=== PATIENT | male | born 2005 | race Caucasian/White ===

== ENCOUNTER 2024-11-04 20:57 | Emergency (ER) | payer MEDICAID, OTHER ==
[~2024-11-04] VITALS: Ht 170.2 cm; Wt 82.5 kg
--- NOTE | 2024-11-04 21:35 | DVH ---
EXAM: XY CHEST TWO VIEWS ROUTINE CLINICAL HISTORY: sob TECHNIQUE: Frontal and lateral views of the chest WID: COMPARISON: None FINDINGS: Lines and tubes: None Chest: The heart size and pulmonary vasculature is within normal limits. No pleural effusion, pneumothorax, or consolidation. The osseous structures are grossly intact. IMPRESSION: No acute cardiopulmonary abnormality.
[2024-11-04 22:37] VITALS: BP 124/64; PULSE 82; TEMP 98.2
[2024-11-04] MEDS: DexAMETHasone SOD PHOS 10MG/1ML VIAL INJ IM ONE (22:54)
[2024-11-04 23:01] VITALS: RESP 19; O2SAT 99
[2024-11-04] MEDS: ALBUTEROL SULF 2.5 MG/0.5ML(0.5%) NEB SOLN NEB ONE (23:02)
[2024-11-04] MEDS: IPRATROPIUM BROM 0.5 MG/2.5ML INH SOL NEB ONE (23:02)
--- NOTE | 2024-11-04 23:10 | ED.PDOC ---
SOB-HPI HPI Comments THIS IS A 18-YEAR-OLD ASTHMATIC PATIENT PRESENTS TO THE ED WITH COUGH SHORTNESS OF BREATH AND WHEEZING OVER THE PAST 2 DAYS. PATIENT STATES HE HAS BEEN USING HIS ALBUTEROL INHALER WITH LITTLE RELIEF. REPORTS NO FEVERS, CHILLS, DIFFICULTY BREATHING, OR CHEST PAIN Chief Complaint: Cough Time Seen by MD: 21:14 Reviewed notes: Nurses Notes, Medications, Allergies Information Source: Patient Mode of Arrival: Ambulatory Past Medical History PAST MEDICAL HISTORY: Asthma Family History Family History: Reviewed,noncontributory to illness Social History Smoker: Non-Smoker Alcohol: Denies ETOH Use Drugs: Denies Drug Use Constitutional: denies: chills, diaphoresis, fatigue, fever, malaise, sweats, weakness, others EENTM: denies: blurred vision, double vision, ear bleeding, ear discharge, ear drainage, ear pain, ear ringing, eye pain, eye redness, hearing loss, mouth pain, mouth swelling, nasal discharge, nose bleeding, nose congestion, nose pain, photophobia, tearing, throat pain, throat swelling, voice changes, others Respiratory: reports: cough, shortness of breath, wheezing; denies: hemoptysis, orthopnea, SOB at rest, SOB with excertion, stridor, others Cardiovascular: denies: chest pain, dizzy spells, diaphoresis, Dyspnea on exertion, edema, irregular heart beat, left arm pain, lightheadedness, palpitations, PND, syncope, others Gastrointestinal: denies: abdomen distended, abdominal pain, blood streaked bowels, constipated, diarrhea, dysphagia, difficulty swallowing, hematemesis, melena, nausea, poor appetite, poor fluid intake, rectal bleeding, rectal pain, vomiting, others Genitourinary: denies: burning, dysuria, flank pain, frequency, hematuria, incontinence, penile discharge, penile sore, pain, testicle pain, testicle swelling, urgency, others Neurological: denies: dizziness, fainting, headache, left sided numbness, left sided weakness, numbness, paresthesia, pre-existing deficit, right sided numbness, right sided weakness, seizure, speech problems, tingling, tremors, weakness, others Musculoskeletal: denies: back pain, gout, joint pain, joint swelling, muscle pain, muscle stiffness, neck pain, others Integumetry: denies: bruises, change in color, change in hair/nails, dryness, laceration, lesions, lumps, rash, wounds, others Allergic/Immunocompromised: denies: Difficulty Healing, Frequent Infections, Hives, Itching, others Hematologic/Lymphatic: denies: anemia, blood clots, easy bleeding, easy bruising, swollen glands, others Endocrine: denies: excessive hunger, excessive sweating, excessive thirst, excessive urination, flushing, intolerance to cold, intolerance to heat, unexplained weight gain, unexplained weight loss, others Psychiatric: denies: anxiety, bipolar disorder, depression, hopeless, panic disorder, schizophrenia, sleepless, suicidal, others Physical Exam General Appearance: No Apparent Distress, Normal HEENT: Normal ENT Inspection, Pharynx Normal, TMs Normal Neck: Full Range of Motion, Non-Tender, Normal, Normal Inspection Respiratory: Chest Non-Tender, Expiration, Inspiration, No Accessory Muscle Use, No Respiratory Distress, Wheezing Cardiovascular: No Edema, No JVD, No Murmur, No Gallop, Normal Peripheral Pulses, Regular Rate/Rhythm Breast Exam: Deferred Gastrointestinal: No Organomegaly, Non Tender, No Pulsatile Mass, Normal Bowel Sounds, Soft Genitalia: Deferred Pelvic: Deferred Rectal: Deferred Extremities: Normal capillary refill, Normal inspection, Normal range of motion, Non-tender, No pedal edema Musculoskeletal : Apperance: Normal Neurologic: Alert, 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 Was a procedure done?: No Differential Dx Differential Diagnosis: Pneumonia X-Ray, Labs, Meds, VS Vital Signs Date Time Temp Pulse Resp B/P (MAP) Pulse Ox O2 Delivery O2 Flow Rate FiO2 11/04/24 23:01 19 99 Room Air* 0 21 11/04/24 22:37 82 18 97 Room Air 11/04/24 22:37 98.2 82 18 124/64 (84) 97 98.2 11/04/24 21:14 95.3 86 18 133/74 (93) 96 Current Medications Medications (Trade) Dose Ordered Sig/Lucas Route Start Time Stop Time Status Last Admin Dexamethasone Sodium Phosphate (Decadron Injection) 10 mg ONCE ONCE IM 11/04/24 22:45 11/04/24 22:46 DC 11/04/24 22:54 Albuterol (Ventolin Medneb) 2.5 mg ONCE ONCE NEB 11/04/24 23:00 11/04/24 23:01 DC 11/04/24 23:02 Ipratropium [place] (Atrovent Medneb) 0.5 mg ONCE ONCE NEB 11/04/24 23:00 11/04/24 23:01 DC 11/04/24 23:02 X-Ray, Labs, Meds, VS Comment CHEST X-RAY SHOWS NO ACUTE CARDIOPULMONARY FINDINGS. PATIENT GIVEN DUO NEB AND DECADRON 10 MG IM HE REPORTS IMPROVEMENT IN SHORTNESS OF BREATH REQUESTING DISCHARGE AT THIS TIME. ADVISED TO REST INCREASE P.O. FLUIDS WITH ELECTROLYTES ER RETURN PRECAUTIONS GIVEN PATIENT AGREES WITH DISCHARGE PLAN OF CARE. Time of 1ST Reevaluation: 23:10 Reevaluation 1ST: Improved Patient Education/Counseling: Diagnosis, Treatment, Prognosis, Need For Follow Up Family Education/Counseling: No Family Present Departure 1 Departure Time of Disposition: 23:10 Impression: Primary Impression: Asthma Qualified Codes: J45.20 - Mild intermittent asthma, uncomplicated Disposition: HOME / SELF CARE / HOMELESS Condition: Stable Discharged With: Self Critical Care Note Critical Care Time?: No Stability Stability form required: No Heart Score Heart Score: Heart Score Response (Comments) Value History N/A 0 EKG N/A 0 Age <45 0 Risk Factors N/A 0 Troponin N/A 0 Total 0 CATARINO RYAN Nov 04, 2024 23:10
== END 2024-11-04 23:49 | disposition home or self-care (01) ==
LOC: ER 20:57
DX: J45.909 Unspecified asthma, uncomplicated (principal)
CPT/HCPCS: 71046; 94640; 96372; 99283; J1100

== ENCOUNTER 2025-03-15 15:59 | Emergency (ER) | payer MEDICAID ==
[~2025-03-15] VITALS: Ht 170.2 cm; Wt 86.0 kg
[2025-03-15 16:07] VITALS: BP 141/66; PULSE 109; RESP 18; TEMP 98.3; O2SAT 95
[2025-03-15] MEDS ORDERED: IBUP-1454 PO (16:15)
[2025-03-15] MEDS ORDERED: AMOX875T3 PO (16:15)
[2025-03-15] MEDS ORDERED: PROM1SOL4 PO (16:15)
--- NOTE | 2025-03-15 16:15 | ED.PDOC ---
Eye-HPI HPI Comments 19-year-old male complaining of left ear pain x2 days. States he has been having cough and congestion for the last three days. No fever no chills. Nothing makes it better, nothing makes it worse. Chief Complaint: Earache Time Seen by MD: 16:09 Reviewed Notes: Nurses Notes Information Source: Patient Past Medical History PAST MEDICAL HISTORY: Asthma Family History Family History: Reviewed,noncontributory to illness Social History Smoker: Non-Smoker Alcohol: Denies ETOH Use Drugs: Denies Drug Use Constitutional: denies: chills, diaphoresis, fatigue, fever, malaise, sweats, weakness, others EENTM: reports: ear pain, nose congestion; denies: blurred vision, double vision, ear bleeding, ear discharge, ear drainage, ear ringing, eye pain, eye redness, hearing loss, mouth pain, mouth swelling, nasal discharge, nose bleeding, nose pain, photophobia, tearing, throat pain, throat swelling, voice changes, others Respiratory: reports: cough; denies: hemoptysis, orthopnea, SOB at rest, shortness of breath, SOB with excertion, stridor, wheezing, others Cardiovascular: denies: chest pain, dizzy spells, diaphoresis, Dyspnea on exertion, edema, irregular heart beat, left arm pain, lightheadedness, palpitations, PND, syncope, others Gastrointestinal: denies: abdomen distended, abdominal pain, blood streaked bowels, constipated, diarrhea, dysphagia, difficulty swallowing, hematemesis, melena, nausea, poor appetite, poor fluid intake, rectal bleeding, rectal pain, vomiting, others Genitourinary: denies: burning, dysuria, flank pain, frequency, hematuria, incontinence, penile discharge, penile sore, pain, testicle pain, testicle swelling, urgency, others Neurological: denies: dizziness, fainting, headache, left sided numbness, left sided weakness, numbness, paresthesia, pre-existing deficit, right sided numbness, right sided weakness, seizure, speech problems, tingling, tremors, weakness, others Musculoskeletal: denies: back pain, gout, joint pain, joint swelling, muscle pain, muscle stiffness, neck pain, others Integumetry: denies: bruises, change in color, change in hair/nails, dryness, laceration, lesions, lumps, rash, wounds, others Allergic/Immunocompromised: denies: Difficulty Healing, Frequent Infections, Hives, Itching, others Physical Exam General Appearance: No Apparent Distress, Normal HEENT: Normal ENT Inspection, Pharynx Normal, TM Abnormal (L) (Erythemic), TM Abnormal (R) (Erythemic), TMs Normal Neck: Full Range of Motion, Non-Tender, Normal, Normal Inspection Respiratory: Chest Non-Tender, Lungs Clear, No Accessory Muscle Use, No Respiratory Distress, Normal Breath Sounds Cardiovascular: No Edema, No JVD, No Murmur, No Gallop, Normal Peripheral Pulses, Regular Rate/Rhythm Breast Exam: Deferred Gastrointestinal: No Organomegaly, Non Tender, No Pulsatile Mass, Normal Bowel Sounds, Soft Genitalia: Deferred Pelvic: Deferred Rectal: Deferred Extremities: No calf tenderness, Normal capillary refill, Normal inspection, Normal range of motion, Non-tender, No pedal edema Musculoskeletal : Apperance: Normal Neurologic: Alert, 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 Was a procedure done?: No EENT DIFF Eye: N/A Ear: Cerumen Impaction, Otitis Externa, Otitis Media, Perforation, Sinusitis X-Ray, Labs, Meds, VS Comment Imaging: X-rays and CT scans were reviewed and interpreted by this provider, imaging shows no fractures and no pathological disease. Pending radiology review. Laboratory: Labs reviewed and interpreted by this provider. No significant abnormalities noted. Patient has prior medical visits reviewed. Med reconciliation performed Vital signs reviewed Time of 1ST Reevaluation: 16:15 Reevaluation 1ST: Improved Patient Education/Counseling: Diagnosis, Treatment, Need For Follow Up (Follow up in the emergency department in the next 24-48 hours if symptoms worsen. It was advised to follow up with your primary care doctor in the next 3-4 days for further evaluation.) Family Education/Counseling: Diagnosis Departure 1 Departure Time of Disposition: 16:14 Impression: Primary Impression: Otitis media Qualified Codes: H66.003 - Acute suppurative otitis media without spontaneous rupture of ear drum, bilateral Disposition: HOME / SELF CARE / HOMELESS Condition: Fair e-Prescriptions Promethazine-Dm (Promethazine Dm 6.25-15 mg/5Ml) 1 Soo Soo 5 ML PO TID PRN, #200 ML Prov: JOHNNY CADENA 03/15/25 Ibuprofen (Ibuprofen) 600 Mg Tab 1 TAB PO TID, #40 TAB Prov: JONHNY CADENA 03/15/25 Amoxicillin Trihydrate (Amoxicillin) 875 Mg Tab 1 TAB PO BID for 7 Days, #14 TAB Prov: JOHNNY CADENA 03/15/25 Discharged With: Self Critical Care Note Critical Care Time?: No Stability Stability form required: No Heart Score Heart Score: Heart Score Response (Comments) Value History N/A 0 EKG N/A 0 Age N/A 0 Risk Factors N/A 0 Troponin N/A 0 Total 0 JOHNNY CADENA March 15, 2025 16:15
== END 2025-03-15 16:51 | disposition home or self-care (01) ==
LOC: ER 15:59
DX: J45.909 Unspecified asthma, uncomplicated (principal); H66.92 Otitis media, unspecified, left ear

== ENCOUNTER 2025-04-21 21:12 | Emergency (ER) | payer MEDICAID ==
[~2025-04-21] VITALS: Ht 170.2 cm; Wt 84.7 kg
[~2025-04-21 21:12] MED LIST: AMOX875T3 PO; IBUP-1454 PO; PROM1SOL4 PO
[2025-04-21] MEDS ORDERED: PROM1SOL2 PO (21:58)
[2025-04-21] MEDS ORDERED: FLUT250M2 INH (21:58)
[2025-04-21] MEDS ORDERED: ALBU108A5 IN (21:58)
--- NOTE | 2025-04-21 22:02 | ED.PDOC ---
SOB-HPI HPI Comments 19-year-old asthmatic male presents to the ED requesting medication refills and cough. Patient requesting refill of his steroid inhaler, albuterol inhaler and cough medication. He notes increasing cough over the past several days with intermittent wheezing reports no shortness of breath denies fever or chills or wheezing at this time. Chief Complaint: Cough Time Seen by MD: 21:16 Primary Care Provider: UNKNOWN Reviewed notes: Nurses Notes, Medications, Allergies Information Source: Patient Past Medical History PAST MEDICAL HISTORY: Asthma Family History Family History: Reviewed,noncontributory to illness Social History Smoker: Non-Smoker Alcohol: Denies ETOH Use Drugs: Denies Drug Use Constitutional: denies: chills, diaphoresis, fatigue, fever, malaise, sweats, weakness, others EENTM: denies: blurred vision, double vision, ear bleeding, ear discharge, ear drainage, ear pain, ear ringing, eye pain, eye redness, hearing loss, mouth pain, mouth swelling, nasal discharge, nose bleeding, nose congestion, nose pain, photophobia, tearing, throat pain, throat swelling, voice changes, others Respiratory: reports: cough; denies: hemoptysis, orthopnea, SOB at rest, shortness of breath, SOB with excertion, stridor, wheezing, others Cardiovascular: denies: chest pain, dizzy spells, diaphoresis, Dyspnea on exertion, edema, irregular heart beat, left arm pain, lightheadedness, palpitations, PND, syncope, others Gastrointestinal: denies: abdomen distended, abdominal pain, blood streaked bowels, constipated, diarrhea, dysphagia, difficulty swallowing, hematemesis, melena, nausea, poor appetite, poor fluid intake, rectal bleeding, rectal pain, vomiting, others Genitourinary: denies: burning, dysuria, flank pain, frequency, hematuria, incontinence, penile discharge, penile sore, pain, testicle pain, testicle swelling, urgency, others Neurological: denies: dizziness, fainting, headache, left sided numbness, left sided weakness, numbness, paresthesia, pre-existing deficit, right sided numbness, right sided weakness, seizure, speech problems, tingling, tremors, weakness, others Musculoskeletal: denies: back pain, gout, joint pain, joint swelling, muscle pain, muscle stiffness, neck pain, others Integumetry: denies: bruises, change in color, change in hair/nails, dryness, laceration, lesions, lumps, rash, wounds, others Allergic/Immunocompromised: denies: Difficulty Healing, Frequent Infections, Hives, Itching, others Hematologic/Lymphatic: denies: anemia, blood clots, easy bleeding, easy bruising, swollen glands, others Endocrine: denies: excessive hunger, excessive sweating, excessive thirst, excessive urination, flushing, intolerance to cold, intolerance to heat, unexplained weight gain, unexplained weight loss, others Psychiatric: denies: anxiety, bipolar disorder, depression, hopeless, panic disorder, schizophrenia, sleepless, suicidal, others Physical Exam General Appearance: No Apparent Distress, Normal HEENT: Normal ENT Inspection, Pharynx Normal, TMs Normal Neck: Full Range of Motion, Non-Tender Respiratory: Chest Non-Tender, Lungs Clear, No Accessory Muscle Use, No Respiratory Distress, Normal Breath Sounds Cardiovascular: No Edema, No JVD, No Murmur, No Gallop, Normal Peripheral Pulses, Regular Rate/Rhythm Breast Exam: Deferred Gastrointestinal: No Organomegaly, Non Tender, No Pulsatile Mass, Normal Bowel Sounds, Soft Genitalia: Deferred Pelvic: Deferred Rectal: Deferred Extremities: Normal capillary refill, Normal inspection, Normal range of motion, Non-tender, No pedal edema Musculoskeletal : Apperance: Normal Neurologic: Alert, No Motor Deficits, Normal Affect, Normal Mood, No Sensory Deficits Cerebellar Function: Normal Reflexes: Normal Skin: Dry, Normal Color, Warm Lymphatic: No Adenopathy Was a procedure done? Was a procedure done?: No Differential Dx Differential Diagnosis: Asthma, Bronchitis, Pneumonia X-Ray, Labs, Meds, VS Comment Patient's medications refilled based on reported medication history. Advised for him to follow up with his PCP in 2-3 days and future refills. Advised on ER return precautions patient indicated understanding and agrees with discharge plan of care Time of 1ST Reevaluation: 21:35 Reevaluation 1ST: Unchanged Time of 2ND Reevaluation: 21:58 Reevaluation 2ND: Improved Patient Education/Counseling: Diagnosis, Treatment, Prognosis, Need For Follow Up Family Education/Counseling: No Family Present Departure 1 Departure Time of Disposition: 21:49 Impression: Primary Impression: Asthma Qualified Codes: J45.31 - Mild persistent asthma with (acute) exacerbation Disposition: 01 HOME / SELF CARE / HOMELESS Condition: Stable e-Prescriptions Promethazine-Dm (Promethazine Hydrochlorid 6.25-15 mg/5Ml) 1 Soo Soo 5 ML PO TID PRN for 10 Days, #150 ML Prov: CATARINO RYAN 04/21/25 Fluticasone-Salmeterol (Advair Diskus 250/50) 1 Puff Ih 1 PUFF INH BID for 14 Days, #1 INHALER Prov: CATARINO RYAN 04/21/25 Albuterol Sulfate (Albuterol Sulfate Hfa) 108 Mcg/Act Aer 108 MCG IN Q4HP PRN for 30 Days, #1 INHALER Prov: CATARINO RYAN 04/21/25 Discharged With: Self Critical Care Note Critical Care Time?: No Stability Stability form required: No Heart Score Heart Score: Heart Score Response (Comments) Value History N/A 0 EKG N/A 0 Age <45 0 Risk Factors N/A 0 Troponin N/A 0 Total 0 CATARINO RYAN Apr 21, 2025 22:02
[2025-04-21 22:18] VITALS: BP 137/76; PULSE 114; RESP 20; TEMP 97.7; O2SAT 99
== END 2025-04-21 22:35 | disposition home or self-care (01) ==
LOC: ER 21:12
DX: J45.909 Unspecified asthma, uncomplicated (principal)